=== PATIENT | male | born 1985 | race Caucasian/White ===

== ENCOUNTER 2017-12-22 10:25 | Emergency (ER) | payer OTHER ==
[2017-12-22 10:49] VITALS: BP 130/83; PULSE 77; TEMP 98.4; BMI 30.7
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
== END 2017-12-22 12:39 | disposition home or self-care (01) ==
LOC: FER 10:25
DX: S09.90XA Unspecified injury of head, initial encounter (principal); V43.62XA Car passenger injured in collision with other type car in traffic accident, initial encounter; Y93.89 Activity, other specified; Y92.410 Unspecified street and highway as the place of occurrence of the external cause
CPT/HCPCS: 70450-TC; 99282-25

== ENCOUNTER 2018-08-08 21:45 | Observation (INO) | payer BC, OTHER ==
[2018-08-08 21:57] VITALS: BMI 35.2
[2018-08-08] MEDS ORDERED: SODIUM CHLORIDE 0.9% 500 ML INFUS.BAG IV ONE (22:13)
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
[2018-08-08 23:21] LABS: BASO % 0.7 % (0-2.0); EOS % 0.1 % (0-4.5); HEMATOCRIT 44.2 % (35.4-49); HEMOGLOBIN 15.3 GM/dL (11.7-16.9); LYMPH % 12.3 % (8-40); MCH 30.2 pg (25.7-33.7); MCHC 34.5 g/dl (32.0-35.9); MEAN CELL VOLUME 87.7 fl (80-96); MEAN PLT VOLUME 8.3 fl (7.5-11.1); MONO % 7.9 % (3.8-10.2); PLATELET COUNT 291 K/MM3 (134-434); RBC 5.04 M/mm3 (4.00-5.60); WHITE BLOOD COUNT 8.5 K/mm3 (4.0-10.0)
[2018-08-08 23:42] LABS: ALBUMIN 4.2 g/dl (3.4-5.0); ALK PHOS 105 U/L (45-117); ANION GAP 7 MMOL/L (8-16); BILIRUBIN,TOTAL 0.4 mg/dL (0.2-1); BLOOD UREA NITROGEN 13 mg/dL (7-18); CALCIUM 8.5 mg/dL (8.5-10.1); CHLORIDE 105 mmol/L (98-107); CO2 26 mmol/L (21-32); GLUCOSE,RANDOM 105 mg/dL (74-106); POTASSIUM 4.1 mmol/L (3.5-5.1); SGOT/AST 74 U/L (15-37); SGPT/ALT 66 U/L (13-61); SODIUM 138 mmol/L (136-145)
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
[2018-08-09] MEDS ORDERED: IBUPROFEN 400 MG TABLET (FP) PO PRN (02:07)
[2018-08-09] MEDS ORDERED: LACTATED RINGERS SOLUTION 1,000 ML IV SCH (02:15)
--- NOTE | 2018-08-09 02:37 | HP ---
CHIEF COMPLAINT: syncope PCP: HISTORY OF PRESENT ILLNESS: Patient is a 32 y/o male with no past medical history who presents for one episode of syncope. Patient took his temperature today and it was 101.6. He was sitting on the couch speaking to his partner when he noted that his speech was slowed. he states he does not believed i was slurring but he was speaking slower and more deliberate. Per his partner he stood up and he went down hitting his head. Patient notes he has never passed out before. He has a headache at the left side of his head where he hit it. He had gotten the flu shot and a tdap shot on thursday. His is and was told he needed to get a tdap He believes he was starting to feel feverish after receiving those. He currently denies fever, nausea, vomiting, diarrhea, palpitations, blurry vision, and abdominal pain. Patient reports that he feels SOB, he describes it as stating he feels he is taking more breaths. 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 H exercises frequently but only uses plant based protein powder. He states he uses supplements including tumeric, konrad, and CBD from [employer]. ER course was notable for: (1) (2) (3) Recent Travel: PAST MEDICAL HISTORY: none PAST SURGICAL HISTORY: none Social History: Smoking: denies Alcohol: denies Drugs: denies Family History: mom; HTN, dad; HTN and [place] in his 40's, paternal grandfather [place] in his 50's Allergies No Known Allergies Allergy (Verified 08/08/18 21:57) HOME MEDICATIONS: Home Medications Medication Instructions Recorded NK [No Known Home Medication] 12/22/17 REVIEW OF SYSTEMS CONSTITUTIONAL: Absent: fever , chills, diaphoresis, generalized weakness, malaise, loss of appetite, weight change HEENT: Absent: rhinorrhea, nasal congestion, throat pain, throat swelling, difficulty swallowing, mouth swelling, ear pain, eye pain, visual changes CARDIOVASCULAR: Absent: chest pain, syncope, palpitations, irregular heart rate, lightheadedness , peripheral edema RESPIRATORY: shortness of breath, Absent: cough, dyspnea with exertion, orthopnea, wheezing, stridor, hemoptysis GASTROINTESTINAL: Absent: abdominal pain, abdominal distension, nausea, vomiting, diarrhea, constipation, melena, hematochezia GENITOURINARY: Absent: dysuria, frequency, urgency, hesitancy, hematuria, flank pain, genital pain MUSCULOSKELETAL: Absent: myalgia, arthralgia, joint swelling, back pain, neck pain SKIN: Absent: rash, itching, pallor HEMATOLOGIC/IMMUNOLOGIC: Absent: easy bleeding, easy bruising, lymphadenopathy, frequent infections ENDOCRINE: Absent: unexplained weight gain, unexplained weight loss, heat intolerance, cold intolerance NEUROLOGIC: Absent: headache, focal weakness or paresthesias, dizziness, unsteady gait, seizure, mental status changes, bladder or bowel incontinence PSYCHIATRIC: Absent: anxiety, depression, suicidal or homicidal ideation, hallucinations. PHYSICAL EXAMINATION Vital Signs - 24 hr 08/08/18 08/09/18 21:45 02:13 Temperature 99.1 F 101.1 F H Pulse Rate 103 H Respiratory 17 Rate Blood Pressure 133/74 O2 Sat by Pulse 98 Oximetry (%) GENERAL: Awake, alert, and fully oriented, in no acute distress. HEAD: Normal with no signs of trauma. EYES: Pupils equal, round and reactive to light, extraocular movements intact, EARS, NOSE, THROAT: Moist mucous membranes. NECK: Normal range of motion, supple without lymphadenopathy, JVD, or masses. LUNGS: Breath sounds equal, clear to auscultation bilaterally. No wheezes, and no crackles. No accessory muscle use. HEART: Regular rhythm, tachycardia, normal S1 and S2 without murmur, rub or gallop. ABDOMEN: Soft, nontender, not distended, normoactive bowel sounds, no guarding, no rebound, no masses. No hepatomegaly or splenomegaly. MUSCULOSKELETAL: Normal range of motion at all joints. No bony deformities or tenderness. No CVA tenderness. UPPER EXTREMITIES: 5/5 strength LOWER EXTREMITIES: 2+ pulses, warm, well-perfused. No calf tenderness. No peripheral edema. 5/5 strength NEUROLOGICAL: Cranial nerves II-XII intact. Normal speech. Normal gait. PSYCHIATRIC: Cooperative. Good eye contact. Appropriate mood and affect. SKIN: Warm, dry, normal turgor, no rashes or lesions noted, normal capillary refill. Laboratory Results - last 24 hr CBC, BMP 08/08/18 23:09 08/08/18 23:09 ASSESSMENT/PLAN: Patient is a 32 y/o male with no past medical history who presents for one episode of syncope. #Syncope - likely vasovagal, r/o PE, cardiac causes vs delayed reaction to flu/tdap shot vs viral - f/u carotid dopplrs, MRI/MRA neck and head - f/u TSH, lipid panel, UA, Utox - ekg : no aucte changes or evidence of arrhythmia - orthostatics (after 1 L of NS) laying down: 122/75 pulse 101, sittin/ 72 pulse 91, standing up: 128/85 pulse 100 - cardiac f/u Dr. White - repeat EKG in the morning, echo - Chest CTA: negative for PE - Head CT: negative for any pathology - fall precautions, seizure precautions - rectal fever 101.6, f/u angulo cx - 1L lactated ringers - monitor on tele obs #Transaminitis - 2/2 to unknown cause - f/u abdominal US - continue to trend - f/u hepatitis panel - can consider GI consult #DVT ppx - lovenox 40 mg sq Visit type - Emergency Visit Emergency Visit: Yes ED Registration Date: 08/09/18 Care time: The patient presented to the Emergency Department on the above date and was hospitalized for further evaluation of their emergent condition. - New Patient This patient is new to me today: Yes Date on this admission: 08/09/18 - Critical Care Critical Care patient: No
[2018-08-09 03:01] LABS: URINE APPEARANCE CLEAR; URINE BILIRUBIN NEGATIVE (<2.0 mg/dL); URINE COLOR STRAW; URINE GLUCOSE (UA) NEGATIVE (NEGATIVE); URINE KETONE NEGATIVE (NEGATIVE); URINE LEUK ESTERASE NEGATIVE (NEGATIVE); URINE NITRITE NEGATIVE (NEGATIVE); URINE PROTEIN NEGATIVE (NEGATIVE); URINE UROBILINOGEN NEGATIVE mg/dL (0.2-1.0)
[2018-08-09 05:53] LABS: BASO % 0.6 % (0-2.0); HEMATOCRIT 41.6 % (35.4-49); HEMOGLOBIN 13.7 GM/dL (11.7-16.9); LYMPH % 19.9 % (8-40); MCH 29.1 pg (25.7-33.7); MONO % 10.1 % (3.8-10.2); NEUT % 69.4 % (42.8-82.8); PLATELET COUNT 270 K/MM3 (134-434); RBC 4.73 M/mm3 (4.00-5.60); RDW 11.9 % (11.9-15.9); WHITE BLOOD COUNT 6.5 K/mm3 (4.0-10.0)
[2018-08-09 06:09] LABS: INR 1.16 (0.83-1.09); PROTHROMBIN TIME (PATIENT) 13.7 SEC (9.7-13.0)
[2018-08-09 06:12] LABS: ACTIVATED PTT 26.8 SECONDS (25.2-36.5)
[2018-08-09 06:16] LABS: COCAINE, UR NEGATIVE ng/ml (CUTOFF=300); METHADONE, UR NEGATIVE ng/ml (CUTOFF=300); OPIATES, URI NEGATIVE ng/ml (CUTOFF=300); PHENCYCLIDINE,URINE NEGATIVE ng/ml (CUTOFF=25); URINE AMPHETAMINES NEGATIVE ng/ml (CUTOFF=500); URINE BARBITURATES NEGATIVE ng/ml (CUTOFF=200); URINE BENZODIAZEPINES NEGATIVE ng/ml (CUTOFF=200)
[2018-08-09 06:32] LABS: ALBUMIN 3.7 g/dl (3.4-5.0); ALK PHOS 91 U/L (45-117); ANION GAP 7 MMOL/L (8-16); BILIRUBIN,TOTAL 0.3 mg/dL (0.2-1); BLOOD UREA NITROGEN 10 mg/dL (7-18); CALCIUM 7.8 mg/dL (8.5-10.1); CHLORIDE 108 mmol/L (98-107); CHOLESTEROL 172 mg/dL (50-200); CO2 26 mmol/L (21-32); CREATININE 0.9 mg/dL (0.55-1.3); GLUCOSE,RANDOM 119 mg/dL (74-106); HDL CHOLESTEROL 51 mg/dL (40-60); PHOSPHOROUS 3.9 mg/dL (2.5-4.9); SGOT/AST 44 U/L (15-37); SGPT/ALT 59 U/L (13-61); SODIUM 141 mmol/L (136-145); TOT PROT 7.1 g/dl (6.4-8.2); TRIGLYCERIDES 79 mg/dL (0-150)
--- NOTE | 2018-08-09 09:49 | CON.CARD ---
Consult Consult Specialty:: cardio - History of Present Illness Chief Complaint: fainted History of Present Illness: 32 M here with syncopal episode. Very healthy, athletic at baseline, no sx's. began feeling sx's of viral illness on 08/07: fatigue, muscle aches, feeling feverish (though home temperature was 98.8). s/p flu shot the day before. on DOA (08/08) he slept most of the day, got up and ate once about 2 PM. developed fever to 101.6 later in evening. shortly thereafter was sitting at the table, did not eat much, when he started feeling ill, very fatigued, episodes of trouble breathing slurred speech - described as speaking slowing one syllable at a time. He got up from the table and per his went facedown into the fireplace. noted pt sweating and his eyes rolled back in his head and he was down for about 2 minutes. states he looked "stiff" and was not breathing for some of that time. pt/ deny blood in mouth or any incontinence. he was slightly confused after the event--thought he was in his bed and didn't know he passed out. EMS reportedly detected systolic BP around 110 per ER notes. Patient denies prior episodes of syncope. in ER: mildly elevated LFTs, CT head negative, CTA chest no PE. temp 101. trop neg x 2, BNP normal/low. was feeling somewhat shallow breathing yesterday--resolved today no cp at any time. no palpitations. Family history: father [place] x2 (began in his 40's) and paternal GF [place] in 50s. - Alcohol/Substance Use Hx Alcohol Use: No - Smoking History Smoking history: Never smoked Have you smoked in the past 12 months: No Home Medications - Allergies Allergies/Adverse Reactions: Allergies Allergy/AdvReac Type Severity Reaction Status Date / Time No Known Allergies Allergy Verified 08/08/18 21:57 - Home Medications Home Medications: Ambulatory Orders NK [No Known Home Medication] 12/22/17 Review of Systems - Review of Systems Constitutional: denies: Chills, Fever Eyes: denies: Eye Pain HENT: denies: Nasal Congestion Neck: denies: Stiffness Cardiovascular: denies: Palpitations Respiratory: denies: Orthopnea, PND Gastrointestinal: denies: Diarrhea, Rectal Bleeding Genitourinary: denies: Burning, Hematuria Musculoskeletal: denies: Muscle Pain Integumentary: denies: Rash Neurological: reports: Syncope. denies: Numbness, Seizure Endocrine: denies: Excessive Sweating Hematology/Lymphatic: denies: Excessive Bleeding Vital Signs: Vital Signs Temperature 99.0 F 08/09/18 06:41 Pulse Rate 89 08/09/18 06:41 Respiratory Rate 18 08/09/18 06:41 Blood Pressure 128/70 08/09/18 06:41 O2 Sat by Pulse Oximetry (%) 100 08/09/18 06:41 Constitutional: Yes: Well Nourished, No Distress Eyes: No: Sclera Icterus HENT: No: Nasal Congestion Neck: No: Decreased ROM Respiratory: Yes: CTA Bilaterally. No: Accessory Muscle Use Gastrointestinal: Yes: Normal Bowel Sounds. No: Distention, Hepatomegaly, Palpable Mass, Tenderness Cardiovascular: Yes: Regular Rate and Rhythm JVD: No Carotid Bruit: No PMI: Non-Displaced Heart Sounds: Yes: S1, S2. No: Gallop Murmur: No: Systolic Murmur, Diastolic Murmur Musculoskeletal: Yes: Other (No kyphosis) Extremities: No: Cold, Cyanosis Edema: No Peripheral Pulses: 2+ Left Carotid, 2+ Right Carotid, 2+ Left Doralis Pedis, 2+ Right Dorsalis Pedis Integumentary: No: Jaundice Neurological: Yes: Alert, Oriented (x3) Psychiatric: No: Agitated - Other Data Labs, Other Data: CBC, BMP 08/09/18 05:00 08/09/18 05:00 INR, PTT INR 1.16 (0.83-1.09) H 08/09/18 05:00 Troponin, BNP 08/08/18 08/08/18 08/09/18 23:09 23:09 05:00 Troponin I < 0.02 < 0.02 B-Natriuretic Peptide 22.0 Cancelled Troponin, BNP 08/08/18 08/08/18 08/09/18 23:09 23:09 05:00 Troponin I < 0.02 < 0.02 B-Natriuretic Peptide 22.0 Cancelled Laboratory Tests 08/08/18 08/09/18 08/09/18 23:09 05:00 05:00 WBC 6.5 Hgb 13.7 Plt Count 270 Sodium 141 Potassium 4.0 Carbon Dioxide 26 BUN 10 Creatinine 0.9 AST 44 H ALT 59 Troponin I < 0.02 B-Natriuretic Peptide 22.0 Triglycerides 79 Cholesterol 172 Total LDL Cholesterol 110 H HDL Cholesterol 51 TSH 1.98 08/09/18 05:00 WBC Hgb Plt Count Sodium Potassium Carbon Dioxide BUN Creatinine AST ALT Troponin I < 0.02 B-Natriuretic Peptide Triglycerides Cholesterol Total LDL Cholesterol HDL Cholesterol TSH Assessment/Plan ECG x3: NSR, normal intervals, no Brugada/ARVC findings, no path q's or ST-Ts CTA chest, prelim: no acute findings/no PE syncope: -normal ECG including normal intervals -no signs ACS -statistically, this is most likely acute orthostatic hypotension in pt who is volume depleted by febrile illness and poor PO intake at home -check orthostatic VSs -check echo, ETT to r/o exercise-provoked ventricular arrhythmia or signs of ischemia -if echo and ETT unrevealing, pt is safe for discharge from [facility] and should f/u with us as outpt fever: -per hospitalist
[2018-08-09] MEDS: ENOXAPARIN NA (PORCINE) 40 MG/0.4 ML DISP.SYRIN SQ SCH (10:24)
--- NOTE | 2018-08-09 10:44 | EKG ---
Test Reason : Blood Pressure : / mmHG Vent. Rate : 081 BPM Atrial Rate : 081 BPM P-R Int : 174 ms QRS Dur : 080 ms QT Int : 390 ms P-R-T Axes : 030 049 031 degrees QTc Int : 453 ms NORMAL SINUS RHYTHM NORMAL ECG WHEN COMPARED WITH ECG OF 08-AUG-2018 22:42, NO SIGNIFICANT CHANGE WAS FOUND Confirmed by KARLI MACDONALD MD ([id number]) on 08/09/2018 10:44:27 AM Referred By: Confirmed By:KARLI MACDONALD MD
--- NOTE | 2018-08-09 10:45 | EKG ---
Test Reason : Blood Pressure : / mmHG Vent. Rate : 089 BPM Atrial Rate : 089 BPM P-R Int : 162 ms QRS Dur : 074 ms QT Int : 344 ms P-R-T Axes : 025 048 027 degrees QTc Int : 418 ms NORMAL SINUS RHYTHM NORMAL ECG NO PREVIOUS ECGS AVAILABLE Confirmed by KARLI MACDONALD MD ([id number]) on 08/09/2018 10:45:26 AM Referred By: Confirmed By:KARLI MACDONALD MD
--- NOTE | 2018-08-09 14:48 | ECHO ---
Name: BO DAVIS Exam:Adult Echocardiogram Study Date: 08/09/2018 11:39 AM Age: 32 yrs Reason For Study: r/o lv dysfunction Height: 70 in Weight: 207 lb BSA: 2.1 m2 MMode/2D Measurements & Calculations IVSd: 0.88 cm Ao root diam: 3.4 cm LVIDd: 4.9 cm LA dimension: 4.0 cm LVIDs: 3.0 cm ACS: 2.2 cm LVPWd: 0.89 cm IVSs: 1.0 cm LVPWs: 1.3 cm EDV(Teich): 111.4 ml ESV(Teich): 35.1 ml Doppler Measurements & Calculations MV E max saul: 72.1 cm/sec Ao V2 max: 111.7 cm/sec MV A max saul: 47.6 cm/sec Ao max P.0 mmHg MV E/A: 1.5 Ao V2 mean: 83.0 cm/sec Ao mean P.0 mmHg Ao V2 VTI: 19.9 cm TR max saul: 166.6 cm/sec Med Peak E' Saul: 10.2 cm/sec TR max P.1 mmHg Med E/e': 7.0 Lat Peak E' Saul: 12.0 cm/sec Lat E/e': 6.0 Procedure A complete two-dimensional transthoracic echocardiogram was performed (2D, M-mode, Doppler and color flow Doppler). Left Ventricle The left ventricle is normal in size. Left ventricular systolic function is normal. Ejection Fraction = 60- 65%. No regional wall motion abnormalities noted. Right Ventricle The right ventricle is normal size. The right ventricular systolic function is normal. Atria The left atrial size is normal. Right atrial size is normal. Mitral Valve The mitral valve is normal in structure and function. There is mild mitral valve prolapse. Prolapse o f the anterior mitral leaflet. There is mild mitral regurgitation. Tricuspid Valve The tricuspid valve is normal in structure and function. There is mild tricuspid regurgitation. Aortic Valve The aortic valve is normal in structure and function. No aortic regurgitation is present. Pulmonic Valve The pulmonic valve is not well visualized. Great Vessels The aortic root is normal size. Pericardium/Pleura There is no pericardial effusion. Interpretation Summary The left ventricle is normal in size. Left ventricular systolic function is normal. No regional wall motion abnormalities noted. Ejection Fraction = 60-65%. The right ventricular systolic function is normal. The left atrial size is normal. Right atrial size is normal. There is mild mitral valve prolapse. Prolapse of the anterior mitral leaflet. There is mild mitral regurgitation. There is mild tricuspid regurgitation. There is no pericardial effusion. Previous study is not available for comparison Scotty Yepez MD 08/09/2018 02:47 PM
--- NOTE | 2018-08-09 15:28 | TRE ---
Protocol Name : JENIFFER Max Work Load (METS*10) : 119 Time In Exercise Phase : 00:10:00 Max. Systolic BP : 170 mmHg Max Diastolic BP : 80 mmHg Max Heart Rate : 169 BPM Max Predicted Heart Rate : 189 BPM Attending Physician : DR. MACDONALD Reason For Termination : Target Heart Rate Achieved Reason for Test : CHEST PAIN Stress Protocol : JENIFFER Rest HR : 90 BPM PeakEx METs : 11.9 METS Arrhythmias : No Arrhythmias Resting ECG : Normal Recovery ECG Response (OLD) : Overall Impression : Normal stress test Chest Pain : No Chest Pain HR Response To Exercise : Normal Overall HR Response To Exercise BP Response To Exercise : Normal Resting BP with Appropriate Response Functional Capacity : Above Average (> 20%) Diagnosis : 1. NEGATIVE STRESS TEST 2. APPROPRIATE BLOOD PRESSURE RESPONSE\ 3. GOOD EXERCISE TOLERANCE AND CAPACITY. PATIENT EXERCISED 10 MIN INTO STAGE 4 JENIFFER PROTOCOL AND ACHIEVED 89% OF MPTHR 4. NO SIGNIFICANT ECG ABNORMALITIES ARE SEEN Confirmed by KARLI MACDONALD MD ([id number]) on 08/09/2018 3:27:50 PM
--- NOTE | 2018-08-09 16:37 | PN ---
Physical Exam: SUBJECTIVE: Patient seen and examined. Pt. denies any complaints at this time. No acute events overnight. Pt.'s endorses mood swings recently. Pt. endorses intermittent fasting and has been fatigued over the last few weeks. Pt. states that he has been having decreased PO intake since starting the new diet and working out 2x day. OBJECTIVE: Vital Signs Period Temp Pulse Resp BP Sys/Cardenas Pulse Ox Last 24 Hr 99.0 F-101.1 F 66-103 17-18 121-133/70-94 98-100 GENERAL: The patient is awake, alert, and fully oriented, in no acute distress. HEAD: Normal with no signs of trauma. EYES: Sclera anicteric, conjunctiva clear. No ptosis. ENT: Ears normal, nares patent, oropharynx clear without exudates, moist mucous membranes. LUNGS: Breath sounds equal, clear to auscultation bilaterally, no wheezes, no crackles, no accessory muscle use. HEART: Regular rate and rhythm, S1, S2 without murmur ABDOMEN: Soft, nontender, nondistended, normoactive bowel sounds, no guarding, no rebound EXTREMITIES: 2+ dorsal pedal pulses, warm, well-perfused, no edema. NEUROLOGICAL: Normal speech, gait not observed. PSYCH: Normal mood, normal affect. SKIN: Warm, dry, normal turgor, no rashes or lesions noted Laboratory Results - last 24 hr 08/08/18 08/08/18 08/08/18 22:15 23:09 23:09 WBC 8.5 RBC 5.04 Hgb 15.3 Hct 44.2 MCV 87.7 MCH 30.2 MCHC 34.5 RDW 12.0 Plt Count 291 MPV 8.3 Absolute Neuts (auto) 6.7 Neutrophils % 79.0 Lymphocytes % 12.3 Monocytes % 7.9 Eosinophils % 0.1 Basophils % 0.7 Nucleated RBC % 0 PT with INR INR PTT (Actin FS) D-Dimer Sodium 138 Potassium 4.1 Chloride 105 Carbon Dioxide 26 Anion Gap 7 L BUN 13 Creatinine 1.0 Creat Clearance w eGFR > 60 POC Glucometer [id number] Random Glucose 105 Calcium 8.5 Phosphorus Magnesium Total Bilirubin 0.4 AST 74 H ALT 66 H Alkaline Phosphatase 105 Creatine Kinase 210 Creatine Kinase Index 0.4 CK-MB (CK-2) < 1.0 Troponin I < 0.02 B-Natriuretic Peptide 22.0 Total Protein 8.0 Albumin 4.2 Triglycerides Cholesterol Total LDL Cholesterol HDL Cholesterol TSH Urine Color Urine Appearance Urine pH Ur Specific [place] Urine Protein Urine Glucose (UA) Urine Ketones Urine Blood Urine Nitrite Urine Bilirubin Urine Urobilinogen Ur Leukocyte Esterase Opiates Screen Methadone Screen Barbiturate Screen Phencyclidine Screen Ur Amphetamines Screen MDMA (Ecstasy) Screen Benzodiazepines Screen Cocaine Screen U Marijuana (THC) Screen 08/08/18 08/08/18 08/09/18 23:09 23:09 02:50 WBC RBC Hgb Hct MCV MCH MCHC RDW Plt Count MPV Absolute Neuts (auto) Neutrophils % Lymphocytes % Monocytes % Eosinophils % Basophils % Nucleated RBC % PT with INR INR PTT (Actin FS) D-Dimer 1471 H Sodium Potassium Chloride Carbon Dioxide Anion Gap BUN Creatinine Creat Clearance w eGFR POC Glucometer Random Glucose Calcium Phosphorus Magnesium Total Bilirubin AST ALT Alkaline Phosphatase Creatine Kinase Cancelled Creatine Kinase Index CK-MB (CK-2) Troponin I B-Natriuretic Peptide Cancelled Total Protein Albumin Triglycerides Cholesterol Total LDL Cholesterol HDL Cholesterol TSH Urine Color Urine Appearance Urine pH Ur Specific [place] Urine Protein Urine Glucose (UA) Urine Ketones Urine Blood Urine Nitrite Urine Bilirubin Urine Urobilinogen Ur Leukocyte Esterase Opiates Screen Negative Methadone Screen Negative Barbiturate Screen Negative Phencyclidine Screen Negative Ur Amphetamines Screen Negative MDMA (Ecstasy) Screen Negative Benzodiazepines Screen Negative Cocaine Screen Negative U Marijuana (THC) Screen Negative 08/09/18 08/09/18 08/09/18 02:50 05:00 05:00 WBC 6.5 RBC 4.73 Hgb 13.7 Hct 41.6 MCV 88.0 MCH 29.1 MCHC 33.0 RDW 11.9 Plt Count 270 MPV 8.0 Absolute Neuts (auto) 4.5 Neutrophils % 69.4 Lymphocytes % 19.9 D Monocytes % 10.1 Eosinophils % 0.0 D Basophils % 0.6 Nucleated RBC % 0 PT with INR 13.70 H INR 1.16 H PTT (Actin FS) 26.8 D-Dimer Sodium Potassium Chloride Carbon Dioxide Anion Gap BUN Creatinine Creat Clearance w eGFR POC Glucometer Random Glucose Calcium Phosphorus Magnesium Total Bilirubin AST ALT Alkaline Phosphatase Creatine Kinase Creatine Kinase Index CK-MB (CK-2) Troponin I B-Natriuretic Peptide Total Protein Albumin Triglycerides Cholesterol Total LDL Cholesterol HDL Cholesterol TSH Urine Color Straw Urine Appearance Clear Urine pH 6.0 Ur Specific [place] 1.027 Urine Protein Negative Urine Glucose (UA) Negative Urine Ketones Negative Urine Blood Negative Urine Nitrite Negative Urine Bilirubin Negative Urine Urobilinogen Negative Ur Leukocyte Esterase Negative Opiates Screen Methadone Screen Barbiturate Screen Phencyclidine Screen Ur Amphetamines Screen MDMA (Ecstasy) Screen Benzodiazepines Screen Cocaine Screen U Marijuana (THC) Screen 08/09/18 08/09/18 05:00 05:00 WBC RBC Hgb Hct MCV MCH MCHC RDW Plt Count MPV Absolute Neuts (auto) Neutrophils % Lymphocytes % Monocytes % Eosinophils % Basophils % Nucleated RBC % PT with INR INR PTT (Actin FS) D-Dimer Sodium 141 Potassium 4.0 Chloride 108 H Carbon Dioxide 26 Anion Gap 7 L BUN 10 Creatinine 0.9 Creat Clearance w eGFR > 60 POC Glucometer Random Glucose 119 H Calcium 7.8 L Phosphorus 3.9 Magnesium 2.0 Total Bilirubin 0.3 AST 44 H ALT 59 Alkaline Phosphatase 91 Creatine Kinase 234 Creatine Kinase Index 0.4 CK-MB (CK-2) < 1.0 Troponin I < 0.02 B-Natriuretic Peptide Total Protein 7.1 Albumin 3.7 Triglycerides 79 Cholesterol 172 Total LDL Cholesterol 110 H HDL Cholesterol 51 TSH 1.98 Urine Color Urine Appearance Urine pH Ur Specific [place] Urine Protein Urine Glucose (UA) Urine Ketones Urine Blood Urine Nitrite Urine Bilirubin Urine Urobilinogen Ur Leukocyte Esterase Opiates Screen Methadone Screen Barbiturate Screen Phencyclidine Screen Ur Amphetamines Screen MDMA (Ecstasy) Screen Benzodiazepines Screen Cocaine Screen U Marijuana (THC) Screen Active Medications Current Medications Enoxaparin Sodium (Lovenox -) 40 mg SQ DAILY [facility] Last Admin: 08/09/18 10:24 Dose: 40 mg Lactated Ringer's (Lactated Ringers Solution) 1,000 mls @ 100 mls/hr IV ASDIR [facility] Last Admin: 08/09/18 04:19 Dose: 100 mls/hr Ibuprofen (Motrin -) 400 mg PO Q8H PRN PRN Reason: PAIN LEVEL 7 - 10 Home Medications Medication Instructions Recorded NK [No Known Home Medication] 12/22/17 ASSESSMENT/PLAN: Patient is a 32 y/o male with no past medical history who presents for one episode of syncope. #Cardiology -Syncope likely vasovagal, cardiac causes vs delayed reaction to flu/tdap shot vs viral TSH: wnl UTox - UA - EKG : no aucte changes or evidence of arrhythmia Orthostatics (after 1 L of NS) laying down: 122/75 pulse 101, sittin/72 pulse 91, standing up: 128/85 pulse 100 Cardiology (Dr. White) consult appreciated: CAn D/C from a cardiac perspective, f/u as outpatient Echo: mild MVP (prolapsing anterior leaflet), mild MR and TR, RV and LV nml in size and function Stress Test: Negative for pathology Chest CTA: negative for PE Head CT: negative for any pathology Fall precautions, seizure precautions Rectal fever 101.6 on admission 1L lactated ringers in ED monitor on Telemetry -HLD Lipid Panel negative except for elevated LDL(110); consider starting statin as outpatient D-dimer: 1471 #Gastroenterology -Transaminitis 2/2 to unknown cause continue to trend f/u hepatitis panel consider GI consult #F/E/N -LR @ 100ml/hr -monitor electrolyte replete as needed -regular diet #DVT ppx Lovenox 40 mg SQ Visit type - Emergency Visit Emergency Visit: Yes ED Registration Date: 08/09/18 Care time: The patient presented to the Emergency Department on the above date and was hospitalized for further evaluation of their emergent condition. - New Patient This patient is new to me today: Yes Date on this admission: 08/09/18 - Critical Care Critical Care patient: No - Discharge Referral Referred to [facility] Med P.C[facility] No
--- NOTE | 2018-08-09 17:58 | PN ---
Teaching Attending Note Name of Resident: Stephen Hines ATTENDING PHYSICIAN STATEMENT I saw and evaluated the patient. I reviewed the resident's note and discussed the case with the resident. I agree with the resident's findings and plan as documented. SUBJECTIVE: Patient is comfortable wit no acute distress. OBJECTIVE: Vital Signs Temperature 99.0 F 08/09/18 06:41 Pulse Rate 66 08/09/18 14:05 Respiratory Rate 18 08/09/18 14:05 Blood Pressure 121/73 08/09/18 14:05 O2 Sat by Pulse Oximetry (%) 99 08/09/18 14:05 GENERAL: The patient is awake, alert, and fully oriented, in no acute distress. HEAD: Normal with no signs of trauma. EYES: Sclera anicteric, conjunctiva clear. ENT: Ears normal, oropharynx clear without exudates, moist mucous membranes. LUNGS: Breath sounds equal, clear to auscultation bilaterally, no wheezes, no crackles, no accessory muscle use. HEART: Regular rate and rhythm, S1, S2 without murmur ABDOMEN: Soft,NT,ND, normoactive bowel sounds, no guarding, no rebound EXTREMITIES: 2+ dorsal pedal pulses, warm, well-perfused, no edema. NEUROLOGICAL: Normal speech, gait not observed. PSYCH: Normal mood, normal affect. SKIN: Warm, dry, normal turgor, no rashes or lesions noted CBCD WBC 6.5 K/mm3 (4.0-10.0) 08/09/18 05:00 RBC 4.73 M/mm3 (4.00-5.60) 08/09/18 05:00 Hgb 13.7 GM/dL (11.7-16.9) 08/09/18 05:00 Hct 41.6 % (35.4-49) 08/09/18 05:00 MCV 88.0 fl (80-96) 08/09/18 05:00 MCHC 33.0 g/dl (32.0-35.9) 08/09/18 05:00 RDW 11.9 % (11.9-15.9) 08/09/18 05:00 Plt Count 270 K/MM3 (134-434) 08/09/18 05:00 MPV 8.0 fl (7.5-11.1) 08/09/18 05:00 CMP Sodium 141 mmol/L (136-145) 08/09/18 05:00 Potassium 4.0 mmol/L (3.5-5.1) 08/09/18 05:00 Chloride 108 mmol/L (98-107) H 08/09/18 05:00 Carbon Dioxide 26 mmol/L (21-32) 08/09/18 05:00 Anion Gap 7 MMOL/L (8-16) L 08/09/18 05:00 BUN 10 mg/dL (7-18) 08/09/18 05:00 Creatinine 0.9 mg/dL (0.55-1.3) 08/09/18 05:00 Creat Clearance w eGFR > 60 (>60) 08/09/18 05:00 Random Glucose 119 mg/dL (74-106) H 08/09/18 05:00 Calcium 7.8 mg/dL (8.5-10.1) L 08/09/18 05:00 Total Bilirubin 0.3 mg/dL (0.2-1) 08/09/18 05:00 AST 44 U/L (15-37) H 08/09/18 05:00 ALT 59 U/L (13-61) 08/09/18 05:00 Alkaline Phosphatase 91 U/L (45-117) 08/09/18 05:00 Total Protein 7.1 g/dl (6.4-8.2) 08/09/18 05:00 Albumin 3.7 g/dl (3.4-5.0) 08/09/18 05:00 CARDIAC ENZYMES Creatine Kinase 234 IU/L (26-308) 08/09/18 05:00 Troponin I < 0.02 ng/ml (0.00-0.05) 08/09/18 05:00 Current Medications Generic Name Dose Route Start Last Admin Trade Name Freq PRN Reason Stop Dose Admin Enoxaparin Sodium 40 mg 08/09/18 10:00 08/09/18 10:24 Lovenox - SQ 40 mg DAILY CIARRA Administration Lactated Ringer's 1,000 mls @ 100 mls/hr 08/09/18 02:15 08/09/18 04:19 Lactated Ringers Solution IV 100 mls/hr ASDIR CIARRA Administration Ibuprofen 400 mg 08/09/18 02:07 Motrin - PO Q8H PRN PAIN LEVEL 7 - 10 Home Medications Medication Instructions Recorded NK [No Known Home Medication] 12/22/17 ASSESSMENT AND PLAN: Patient is a 32yo male with no past medical history who presents for one episode of syncope. #Syncope likely vasovagal, r/o cardiac causes #Transaminitis improved. DVTPx: SCds
[2018-08-10 06:05] LABS: HEP.C VIRUS AB <0.1 s/co ratio (0.0-0.9)
[2018-08-10 06:09] LABS: HEMATOCRIT 41.3 % (35.4-49); HEMOGLOBIN 13.5 GM/dL (11.7-16.9); MCHC 32.8 g/dl (32.0-35.9); MEAN CELL VOLUME 88.6 fl (80-96); MEAN PLT VOLUME 7.7 fl (7.5-11.1); PLATELET COUNT 261 K/MM3 (134-434); RBC 4.66 M/mm3 (4.00-5.60); RDW 12.1 % (11.9-15.9); WHITE BLOOD COUNT 6.3 K/mm3 (4.0-10.0)
[2018-08-10 07:34] LABS: ALBUMIN 3.7 g/dl (3.4-5.0); ALK PHOS 90 U/L (45-117); ANION GAP 7 MMOL/L (8-16); BILIRUBIN,TOTAL 0.3 mg/dL (0.2-1); BLOOD UREA NITROGEN 12 mg/dL (7-18); CALCIUM 8.5 mg/dL (8.5-10.1); CHLORIDE 110 mmol/L (98-107); CO2 28 mmol/L (21-32); CREATININE 0.8 mg/dL (0.55-1.3); GLUCOSE,RANDOM 98 mg/dL (74-106); PHOSPHOROUS 3.3 mg/dL (2.5-4.9); SGOT/AST 30 U/L (15-37); SGPT/ALT 60 U/L (13-61); SODIUM 144 mmol/L (136-145); TOT PROT 6.9 g/dl (6.4-8.2)
[2018-08-10 09:42] VITALS: BP 135/77; PULSE 87; TEMP 97
[2018-08-10] MEDS: ENOXAPARIN NA (PORCINE) 40 MG/0.4 ML DISP.SYRIN SQ SCH (11:20)
--- NOTE | 2018-08-10 11:30 | PN ---
Progress Note (short form) - Note Progress Note: s: feels well, no sob palps dizzy loc cp o: Vital Signs Period Temp Pulse Resp BP Sys/Cardenas Pulse Ox Last 24 Hr 97 F-98.3 F 66-87 18-18 109-135/59-77 96-99 Constitutional: Yes: Well Nourished, No Distress Eyes: No: Sclera Icterus Respiratory: Yes: CTA Bilaterally. No: Accessory Muscle Use Gastrointestinal: Yes: Normal Bowel Sounds. No: Distention, Hepatomegaly, Palpable Mass, Tenderness Cardiovascular: Yes: Regular Rate and Rhythm JVD: No Carotid Bruit: No PMI: Non-Displaced Heart Sounds: Yes: S1, S2. No: Gallop Murmur: No: Systolic Murmur, Diastolic Murmur Extremities: No: Cold, Cyanosis Edema: No Integumentary: No: Jaundice Neurological: Yes: Alert, Oriented (x3) Psychiatric: No: Agitated Current Medications Generic Name Dose Route Start Last Admin Trade Name Freq PRN Reason Stop Dose Admin Enoxaparin Sodium 40 mg 08/09/18 10:00 08/10/18 11:20 Lovenox - SQ 40 mg DAILY CIARRA Administration Lactated Ringer's 1,000 mls @ 100 mls/hr 08/09/18 02:15 08/09/18 04:19 Lactated Ringers Solution IV 100 mls/hr ASDIR CIARRA Administration Ibuprofen 400 mg 08/09/18 02:07 Motrin - PO Q8H PRN PAIN LEVEL 7 - 10 CBC, BMP 08/10/18 05:40 08/10/18 05:40 Assessment/Plan ECG x3: NSR, normal intervals, no Brugada/ARVC findings, no path q's or ST-Ts CTA chest, prelim: no acute findings/no PE tele: sr echo 07/2018: nl lv/rv, mild mr/tr ett 07/2018: 10 mins, 89%mphr, no arrhythmias or ischemic changes syncope: -normal ECG including normal intervals -no signs ACS -tele benign -echo and ett unremarkable -statistically, this is most likely acute orthostatic hypotension in pt who is volume depleted by febrile illness and poor PO intake at home -pt is safe for discharge from [facility] and should f/u with us as outpt fever: -per hospitalist
--- NOTE | 2018-08-10 11:47 | DS ---
Physical Exam: SUBJECTIVE: Patient seen and examined OBJECTIVE: Vital Signs Period Temp Pulse Resp BP Sys/Cardenas Pulse Ox Last 24 Hr 97 F-98.3 F 66-87 18-18 109-135/59-77 96-99 PHYSICAL EXAM GENERAL: The patient is awake, alert, and fully oriented, in no acute distress. HEAD: Normal with no signs of trauma. EYES: PERRL, extraocular movements intact, sclera anicteric, conjunctiva clear. ENT: Ears normal, nares patent, oropharynx clear without exudates, moist mucous membranes. NECK: Trachea midline, full range of motion, supple. LUNGS: Breath sounds equal, clear to auscultation bilaterally, no wheezes, no crackles, no accessory muscle use. HEART: Regular rate and rhythm, S1, S2 without murmur, rub or gallop. ABDOMEN: Soft, nontender, nondistended, normoactive bowel sounds, no guarding, no rebound, no hepatosplenomegaly, no masses. EXTREMITIES: 2+ pulses, warm, well-perfused, no edema. NEUROLOGICAL: Cranial nerves II through XII grossly intact. Normal speech, gait not observed. PSYCH: Normal mood, normal affect. SKIN: Warm, dry, normal turgor, no rashes or lesions noted. LABS Laboratory Results - last 24 hr 08/09/18 08/10/18 08/10/18 05:00 05:40 05:40 WBC 6.3 RBC 4.66 Hgb 13.5 Hct 41.3 MCV 88.6 MCH 29.0 MCHC 32.8 RDW 12.1 Plt Count 261 MPV 7.7 Sodium 144 Potassium 4.0 Chloride 110 H Carbon Dioxide 28 Anion Gap 7 L BUN 12 Creatinine 0.8 Creat Clearance w eGFR > 60 Random Glucose 98 Calcium 8.5 Phosphorus 3.3 Magnesium 2.0 Total Bilirubin 0.3 AST 30 ALT 60 Alkaline Phosphatase 90 C-Reactive Protein 0.6 H Total Protein 6.9 Albumin 3.7 Hepatitis A IgM Ab Negative Hep Bs Antigen Negative Hep B Core IgM Ab Negative Hepatitis C Antibody <0.1 08/10/18 06:20 WBC RBC Hgb Hct MCV MCH MCHC RDW Plt Count MPV Sodium Potassium Chloride Carbon Dioxide Anion Gap BUN Creatinine Creat Clearance w eGFR Random Glucose Calcium Phosphorus Magnesium Total Bilirubin AST ALT Alkaline Phosphatase C-Reactive Protein Cancelled Total Protein Albumin Hepatitis A IgM Ab Hep Bs Antigen Hep B Core IgM Ab Hepatitis C Antibody HOSPITAL COURSE: Date of Admission:08/09/18 Date of Discharge: 08/10/18 Pt. presented for slurred speech and syncopal episode that resolved prior to admission. Pt. found to have rectal temp to 101.6 in ED and elevated D-dimer. Pt. admitted to rule out ACS with dehydration. Pt. endorsed decreased PO intake b/c of new diet with exercise. EKG showed NSR. Echocardiogram showed mild MVP of the anterior leaflet, but normal RV and LV size, thickness and function. Exercise Stress Test was negative. CTA negative for PE. Head CT negative for any acute pathology. Pt. treated with fluids, Motrin PRN and DVT Ppx. Pt. instructed to follow up as detailed below. Hospital course discussed and agreed upon with Pt. and medical staff. Minutes to complete discharge: 36 Discharge Summary Reason For Visit: SHORTNESS OF BREATH,SYNCOPE Current Active Problems Shortness of breath (Acute) Syncope (Acute) Condition: Improved - Instructions Diet, Activity, Other Instructions: You came in for an episode of syncope. Please increase your fluid intake. Please eat at least 2000 calories per day if you are doing strenuous exercise daily. We found elevated cholesterol levels during routine blood work. Please follow up with your Primary Care Physician, Dr. Box, within 1 week to discuss results and repeat blood work. You were seen by cardiology for evaluation. Please follow up with your port drier, Dr. White within 1 week. Please return to the ER if you experience chest pain, palpitations, shortness of breath, loss of consciousness or sudden loss of vision. Referrals: John White MD [Staff Physician] - Janet Box [Other] Disposition: HOME - Home Medications Comprehensive Discharge Medication List: Ambulatory Orders NK [No Known Home Medication] 12/22/17 This patient is new to me today: No Emergency Visit: Yes ED Registration Date: 08/09/18 Care time: The patient presented to the Emergency Department on the above date and was hospitalized for further evaluation of their emergent condition. Critical Care patient: No - Discharge Referral Referred to [facility] Med [facility].: No
--- NOTE | 2018-08-10 21:14 | PN ---
Teaching Attending Note Name of Resident: Stephen Hines ATTENDING PHYSICIAN STATEMENT I saw and evaluated the patient. I reviewed the resident's note and discussed the case with the resident. I agree with the resident's findings and plan as documented. SUBJECTIVE: Patient is comfortable with no acute distress, No fever or chills. OBJECTIVE: Vital Signs Temperature 97 F L 08/10/18 08:20 Pulse Rate 87 08/10/18 08:20 Respiratory Rate 18 08/10/18 08:20 Blood Pressure 135/77 08/10/18 08:20 O2 Sat by Pulse Oximetry (%) 98 08/10/18 06:02 GENERAL: The patient is awake, alert, and fully oriented, in no acute distress. HEAD: Normal with no signs of trauma. EYES: Sclera anicteric, conjunctiva clear. ENT: Ears normal, oropharynx clear without exudates, moist mucous membranes. LUNGS: Breath sounds equal, clear to auscultation bilaterally, no wheezes, no crackles, no accessory muscle use. HEART: Regular rate and rhythm, S1, S2 without murmur ABDOMEN: Soft,NT,ND, normoactive bowel sounds, no guarding, no rebound EXTREMITIES: 2+ dorsal pedal pulses, warm, well-perfused, no edema. NEUROLOGICAL: Normal speech, CN 2-12 grossly intact PSYCH: Normal mood, normal affect. SKIN: Warm, dry, normal turgor, no rashes or lesions noted CBCD WBC 6.3 K/mm3 (4.0-10.0) 08/10/18 05:40 RBC 4.66 M/mm3 (4.00-5.60) 08/10/18 05:40 Hgb 13.5 GM/dL (11.7-16.9) 08/10/18 05:40 Hct 41.3 % (35.4-49) 08/10/18 05:40 MCV 88.6 fl (80-96) 08/10/18 05:40 MCHC 32.8 g/dl (32.0-35.9) 08/10/18 05:40 RDW 12.1 % (11.9-15.9) 08/10/18 05:40 Plt Count 261 K/MM3 (134-434) 08/10/18 05:40 MPV 7.7 fl (7.5-11.1) 08/10/18 05:40 CMP Sodium 144 mmol/L (136-145) 08/10/18 05:40 Potassium 4.0 mmol/L (3.5-5.1) 08/10/18 05:40 Chloride 110 mmol/L (98-107) H 08/10/18 05:40 Carbon Dioxide 28 mmol/L (21-32) 08/10/18 05:40 Anion Gap 7 MMOL/L (8-16) L 08/10/18 05:40 BUN 12 mg/dL (7-18) 08/10/18 05:40 Creatinine 0.8 mg/dL (0.55-1.3) 08/10/18 05:40 Creat Clearance w eGFR > 60 (>60) 08/10/18 05:40 Random Glucose 98 mg/dL (74-106) 08/10/18 05:40 Calcium 8.5 mg/dL (8.5-10.1) 08/10/18 05:40 Total Bilirubin 0.3 mg/dL (0.2-1) 08/10/18 05:40 AST 30 U/L (15-37) 08/10/18 05:40 ALT 60 U/L (13-61) 08/10/18 05:40 Alkaline Phosphatase 90 U/L (45-117) 08/10/18 05:40 Total Protein 6.9 g/dl (6.4-8.2) 08/10/18 05:40 Albumin 3.7 g/dl (3.4-5.0) 08/10/18 05:40 CARDIAC ENZYMES Creatine Kinase 234 IU/L (26-308) 08/09/18 05:00 Troponin I < 0.02 ng/ml (0.00-0.05) 08/09/18 05:00 Microbiology 08/09/18 12:06 Blood - Peripheral Venous Blood Culture - Preliminary NO GROWTH OBTAINED AFTER 24 HOURS, INCUBATION TO CONTINUE FOR 4 DAYS. 08/09/18 10:30 Blood - Peripheral Venous Blood Culture - Preliminary NO GROWTH OBTAINED AFTER 24 HOURS, INCUBATION TO CONTINUE FOR 4 DAYS. 08/09/18 12:10 Nasopharyngeal Swab Influenza Types A,B Antigen - Final 08/09/18 12:10 Nasopharyngeal Swab - Final ASSESSMENT AND PLAN: Patient is a 32yo male with no past medical history who presents for one episode of syncope. #Syncope likely vasovagal, no cardiac event noted on tele, patient will follow up with cardiology as an outpatient. #Transaminitis improved. will discharge patient home.
== END 2018-08-10 14:37 | disposition home or self-care (01) ==
LOC: JER 21:45 → JERBED 08-09 01:42 → INTOOBSV 08-09 01:42 → J4S 08-09 21:12
PROVIDERS: ADMIT Internal Medicine; ATTEND Internal Medicine
PROC: 3E0337Z Introduction of Electrolytic and Water Balance Substance into Peripheral Vein, Percutaneous Approach (ICD-10-PCS; principal; 2018-08-09)
PROC: 3E013GC Introduction of Other Therapeutic Substance into Subcutaneous Tissue, Percutaneous Approach (ICD-10-PCS; 2018-08-09)
DX: R55 Syncope and collapse (principal); R06.02 Shortness of breath; R74.0 Nonspecific elevation of levels of transaminase and lactic acid dehydrogenase [LDH]; E66.9 Obesity, unspecified; Z68.35 Body mass index [BMI] 35.0-35.9, adult
CPT/HCPCS: 36415; 70450-TC; 71046-TC-FY; 71275-TC; 80053; 80061; 80074; 80307; 81003; 82550; 82553; 82962; 83721; 83735; 83880; 84100; 84443; 84484; 85025; 85027; 85379; 85610; 85651; 85730; 86140; 87040; 87086; 87804; 93005; 93010; 93017; 93018; 93306-TC; 93880-TC; 99285-25; G0378